=== PATIENT | female | born 1985 | race Two or more races ===

== ENCOUNTER 2020-07-09 03:55 | Emergency (ER) | payer MEDICAID, OTHER, SELFPAY ==
[~2020-07-09] VITALS: Ht 144.8 cm; Wt 118.8 kg
[2020-07-09] MEDS ORDERED: METF500T27 PO (04:19)
[2020-07-09] MEDS ORDERED: LEVO25TA4 PO (04:19)
--- NOTE | 2020-07-09 04:21 | NUR ---
PT CAME INTO ED THIS AM AFTER BEING TOLD BY [facility] SHE SHOULD COME BY BECAUSE HER OXYGEN IS LOW. PT WAS SEEN AT [facility]RG[facility]ARE YESTERDAY AND SWABBED FOR COVID. PT FEELS SHORT OF BREATH, IS DRY COUGHING FREQUENTLY, REPORTS NAUSEA AND DIARRHEA. PT STATES SHE FEELS POORLY. C/O STEVENS AND SORE THROAT. PT GROSS NEURO INTACT, PULSES 2+ PT PLACED ON SPO2/BP MONITORING. WCTM.
--- NOTE | 2020-07-09 05:43 | NUR ---
PT SITTING UP ON [place], [place], STATES "CAN I HAVE SOMETHING FOR THE PAIN? I HURT REALLY BAD". BED IN LOWEST, CALL LIGHT ON LAP, WCTM. WAITING FOR CBC REDRAW AND RESULTS.
[2020-07-09 06:10] LABS: BASOPHILS % (AUTO) 1 % (0-1); EOSINOPHILS % (AUTO) 0 % (1-7); LYMPHOCYTES % (AUTO) 21 % (22-44); MEAN PLATELET VOLUME 8.1 fL (7.4-10.4); MONOCYTES % (AUTO) 6 % (2-9); NEUTROPHILS % (AUTO) 72 % (42-75); PLATELET COUNT 249 x10^3/uL (130-400); RED BLOOD COUNT 4.75 x10^6/uL (3.82-5.3); RED CELL DISTRIBUTION WIDTH 12.6 % (9.6-15.2)
[2020-07-09 06:13] LABS: MD NO
[2020-07-09] MEDS ORDERED: IBUPROFEN 600 MG TABLET ONE (06:22)
[2020-07-09] MEDS ORDERED: IBUPROFEN 600 MG TABLET PO ONE (06:30)
--- NOTE | 2020-07-09 06:56 | NUR ---
PT SITTING UP IN [facility], MEDICATED PER OCT FOR PAIN, BED IN [facility], CALL LIGHT ON LAP, PROVIDED ADDITIONAL WARM BLANKETS FOR COMFORT. WAITING FOR TEST RESULTS. WCTM.
--- NOTE | 2020-07-09 07:08 | NUR ---
bedside report to Kevin BASHIR, pt care transferred at this time.
--- NOTE | 2020-07-09 07:52 | NUR ---
PT TO [facility]. GAIT STEADY. NO ACUTE DISTRESS NOTED. PROVIDED WITH PO FLUIDS. PT AWARE OF WAITING FOR LAB REDRAW TO RESULT. NO OTHER NEEDS EXPRESSED AT THIS TIME.
[2020-07-09 08:06] LABS: ANION GAP 5 mmol/L (5-15); CHLORIDE 105 mmol/L (98-107)
[2020-07-09 08:07] LABS: ALANINE AMINOTRANSFERASE 35 U/L (12-78); ALBUMIN 3.1 g/dL (3.4-5.0); ALKALINE PHOSPHATASE 63 U/L (45-117); BILIRUBIN,TOTAL 0.5 mg/dL (0.2-1.0); CREATININE 0.56 mg/dL (0.55-1.02)
[2020-07-09 10:01] VITALS: BP 135/62
== END 2020-07-09 10:05 | disposition home or self-care (01) ==
LOC: ED 04:56
DX: J18.9 Pneumonia, unspecified organism (principal); R07.9 Chest pain, unspecified; E11.9 Type 2 diabetes mellitus without complications
CPT/HCPCS: 36415; 71045; 80053; 85025; 93005; 99285